=== PATIENT | male | born 1990 | race American Indian/Alaskan Native ===

== ENCOUNTER 2021-10-28 17:42 | Emergency (ER) | payer SELFPAY ==
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
[2021-10-28] MEDS ORDERED: KETOROLAC 10 MG TAB PO ONE (20:14)
[2021-10-28 20:15] VITALS: BP 138/72
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
== END 2021-10-28 21:10 | disposition home or self-care (01) ==
LOC: ED 17:42
DX: S16.1XXA Strain of muscle, fascia and tendon at neck level, initial encounter (principal); S39.012A Strain of muscle, fascia and tendon of lower back, initial encounter; V49.88XA Car occupant (driver) (passenger) injured in other specified transport accidents, initial encounter; Y93.89 Activity, other specified; Y92.89 Other specified places as the place of occurrence of the external cause; Y99.8 Other external cause status
CPT/HCPCS: 72040; 99283